=== PATIENT | female | born 1965 | race Caucasian/White ===

== ENCOUNTER 2016-11-23 13:32 | Emergency (ER) | payer OTHER ==
[2016-11-23 13:46] VITALS: BP 140/83; PULSE 84; TEMP 98.2; BMI 27.4
--- NOTE | 2016-11-23 16:07 | PDOC ---
History of Present Illness - General Chief Complaint: Injury Stated Complaint: FALL Time Seen by Provider: 11/23/16 15:26 History Source: Patient Exam Limitations: No Limitations - History of Present Illness Initial Comments: 11/23/16 17:08 Chief complaint: Right lateral ankle pain History of present illness: Patient is a 51-year-old female with no significant medical history here today complaining of right lateral ankle pain after twisting her foot and ankle when she slid on ice on 11/20/2016. Patient denies any other injury. Patient has noticeable swelling to her right lateral ankle. Patient took some ibuprofen for pain. Patient denies any numbness of right ankle or foot. 11/23/16 17:33 Occurred: reports: other (11/20/16) Severity: Yes: moderate Lower Extremity Pain Location: right: ankle Method of Injury: Yes: fell Modifying Factors: improves with: None Lower Ext. Injury Location - Specific Injury Location Ankle: right ecchymosis (lateral ankle ), right pain, right swelling (lateral ) Extremity Pain Location - Extremity Pain Location Extremity Pain Locations: right: ankle (lateral ) Past History - Past Medical History Allergies/Adverse Reactions: Allergies Allergy/AdvReac Type Severity Reaction Status Date / Time No Known Allergies Allergy Verified 11/23/16 13:46 Home Medications: Ambulatory Orders No Home Medications 0 dose .ROUTE UTDICT 08/28/12 Other medical history: NONE - Psycho/Social/Smoking Cessation Hx Suicidal Ideation: No Smoking Status: No Smoking History: Never smoked Number of Cigarettes Smoked Daily: 0 Hx Alcohol Use: No Drug/Substance Use Hx: No Substance Use Type: None Review of Systems - Review of Systems Able to Perform ROS?: Yes Constitutional: No: Symptoms Reported HEENTM: No: Symptoms Reported Respiratory: No: Symptoms reported Cardiac (ROS): No: Symptoms Reported ABD/GI: No: Symptoms Reported : No: Symptoms Reported Musculoskeletal: Yes: Joint Pain (rt. lateral ), Joint Swelling (rt. lateral ) Integumentary: Yes: Bruising (rt. lateral ankle ) Neurological: No: Symptoms reported *Physical Exam - Vital Signs Last Vital Signs Temp Pulse Resp BP Pulse Ox 98.2 F 84 20 140/83 98 11/23/16 13:43 11/23/16 13:43 11/23/16 13:43 11/23/16 13:43 11/23/16 13:43 - Physical Exam General Appearance: Yes: Appropriately Dressed Vascular Pulses: Dorsalis-Pedis (R): 4+ Extremity: positive: Normal Capillary Refill, Normal Range of Motion, Tender ( rt. lateral ankle ), Swelling (rt. lateral ankle ) Integumentary: positive: Ecchymosis (rt. lateral ankle ) Neurologic: positive: Alert, Normal Response, Respond to painful stimul (rt. foot/ankle ) Deep Tendon Reflexes: Ankle (R): 4+ (no induration ) Procedures - Consent Consent obtained: From Patient - Splinting Splint Location: Right: Foot, Ankle Pre-Made Type: aircast Saurabh Bandage: 3" Complications: No Medical Decision Making - Medical Decision Making 11/23/16 17:33 11/23/16 17:33 Patient is a 51-year-old female with no significant medical history here today complaining of right lateral ankle pain after twisting her foot and ankle when she slid on ice on 11/20/2016. Patient denies any other injury. Patient has noticeable swelling to her right lateral ankle. Patient took some ibuprofen for pain. Patient denies any numbness of right ankle or foot. Fracture right lateral ankle Versus sprain right ankle Plan: XRAY RT. FOOT/ANKLE NO FRACTURE NOTED, SOFT TISSUE SWELLING Ibuprofen 600 mg by mouth now Saurabh wrap 3 inch with air cast right ankle foot Crutches given ortho referral 11/23/16 20:33 11/23/16 20:33 *DC/Admit/Observation/Transfer Diagnosis at time of Disposition: Sprain of ankle, right Qualifiers: Encounter type: initial encounter Involved ligament of ankle: unspecified ligament Qualified Code(s): S93.401A - Sprain of unspecified ligament of right ankle, initial encounter - Discharge Dispostion Disposition: HOME Condition at time of disposition: Stable - Referrals Referrals: Farhana Nash MD [Primary Care Provider] - Alban Parker MD [Staff Physician] - - Patient Instructions Additional Instructions: Elevate right leg as much as possible Wear saurabh wrap and air cast during the day and use crutches for ambulation Follow-up with orthopedist as soon as possible for further evaluation Take ibuprofen as needed as directed by manufacture Patient voiced understanding of discharge instructions and questions were answered - Post Discharge Activity Work/School Note: Back to Work
[2016-11-23] MEDS ORDERED: IBUPROFEN 600 MG TABLET (FP) PO ONE ×2 (17:20→17:33)
== END 2016-11-23 17:40 | disposition home or self-care (01) ==
LOC: JERFT 13:32
PROC: 2W3SX1Z Immobilization of Right Foot using Splint (ICD-10-PCS; principal; 2016-11-23)
DX: S93.401A Sprain of unspecified ligament of right ankle, initial encounter (principal); W00.9XXA Unspecified fall due to ice and snow, initial encounter; Y93.9 Activity, unspecified; Y92.9 Unspecified place or not applicable
CPT/HCPCS: 73610-TC-RT; 73630-TC-RT; 99281-25